=== PATIENT | female | born 1955 | race Caucasian/White ===

== ENCOUNTER 2017-09-24 13:03 | Day surgery (SDC) | payer OTHER ==
[~2017-09-24] VITALS: Ht 170.2 cm; Wt 120.2 kg
[~2017-09-24 13:03] MED LIST: LITE COAT ASPI325 M1 PO
[2017-09-24 13:26] VITALS: BP 140/84
[2017-09-24 15:30] VITALS: BP 146/73
[2017-09-24 16:10] VITALS: BP 150/80
== END 2017-09-24 16:27 | disposition home or self-care (01) ==
LOC: SDC 13:03
PROC: 01N50ZZ Release Median Nerve, Open Approach (ICD-10-PCS; principal; 2017-09-24)
DX: G56.02 Carpal tunnel syndrome, left upper limb (principal); Z79.82 Long term (current) use of aspirin
CPT/HCPCS: J2250; J3010; S0020